=== PATIENT | female | born 1960 | race Caucasian/White ===

== ENCOUNTER → 2016-09-01 | Outpatient (CLI) | payer BC ==
[~2016-09-01] MED LIST: LOSA1TAB38 PO; MELA1TAB5 PO; MULT-506 PO; RANI150T3 PO
[2016-09-01 08:09] LABS: PATIENT HEIGHT 165.1 cm
[2016-09-01 09:37] LABS: URINE APPEARANCE CLOUDY (CLEAR); URINE BILIRUBIN NEG (NEG); URINE COLOR YELLOW; URINE NITRITE NEG (NEG); URINE PH 5.5 (4.5-7.5); UROBILINOGEN NEG (NEG)
[2016-09-01 09:48] LABS: MANUAL MICROSCOPIC REQUIRED? NO; REVIEW REQ? NO
[2016-09-01 09:53] LABS: BUN/CREATININE RATIO 14.1 (10-20); CALCIUM 8.7 mg/dl (8.5-10.1); CREATININE 1.5 mg/dl (0.60-1.20); POTASSIUM 4.1 mmol/L (3.5-5.1); URINE TOTAL PROTEIN 82.6 mg/dl (0-11.9)
[2016-09-01 09:54] LABS: PHOSPHORUS 3.1 mg/dl (2.5-4.9)
[2016-09-01 10:07] LABS: URINE TOTAL PROTEIN 32.5 mg/dl (0-11.9)
[2016-09-01 10:11] LABS: URINE PROTIEN/CREAT RATIO 1.1 (0-0.2)
[2016-09-01 10:20] LABS: CREATININE 1.5 mg/dl (0.6-1.2)
== END | disposition home or self-care (01) ==
LOC: C.LAB1850 08:01
PROVIDERS: ATTEND Internal Medicine Rheumatology
DX: R80.9 Proteinuria, unspecified (principal)

== ENCOUNTER → 2016-11-14 | Outpatient (CLI) | payer BC ==
--- NOTE | 2016-11-14 14:46 | DIAGNOSTIC IMAGING REPORT ---
CT OF THE CHEST WITHOUT IV CONTRAST CLINICAL HISTORY: Chronic cough COMPARISON STUDY: Chest x-ray dated 04/13/2016 CT DOSE: 195.73 mGy.cm TECHNIQUE: CT of the thorax was performed from the thoracic inlet to the lung bases. Images are reviewed in the axial, sagittal, and coronal planes. IV contrast was not administered for this examination. FINDINGS: Thyroid: Imaged portions of the thyroid gland are normal in appearance. Thoracic aorta: The thoracic aorta is normal in course and caliber, noting standard 3 vessel arch anatomy. Heart: The heart is normal in size and configuration, without pericardial effusion. Lungs and pleural spaces: There are no pleural effusions. There is no focal pulmonary consolidation. There is a 2.5 mm solid right apical point nodule as visualized in image #[id number]. There is a 2 mm solid there is a 4 mm left lower lobe pulmonary nodule as visualized in image #[id number]. Right lower lobe pulmonary nodule as visualized in image #[id number] Mediastinum: There is no mediastinal lymphadenopathy. Uzma: There is no evidence of pathologic hilar adenopathy given the limitations of a noncontrast study Axilla: Clear. Upper abdomen: Partially visualized upper abdominal viscera is within normal limits. Skeletal structures: There are no lytic or blastic osseous lesions. IMPRESSION: 1. No evidence of pathologic adenopathy 2. No evidence of focal pulmonary consolidation 3. Tiny bilateral solid pulmonary nodules, the largest of which measures 4 mm. 4. If the patient is a low risk patient, no further follow-up of these nodules is indicated. If the patient is at high risk, a 12 month follow-up is recommended. Please refer to below summary of Fleischner criteria recommendations for follow-up of incidental CT nodules (Katie Ramos, Guidelines for management of small pulmonary nodules detected on CT scans: A statement from the Fleischner Society, Radiology 237: [phone].) SOLID NODULES Solitary nodule size: <6 mm * low risk patients: no follow-up needed * high risk patients: optional CT at 12 months Solitary nodule size: 6-8 mm * low risk patients: follow-up at 6-12 months, then consider further follow-up at 18-24 months * high risk patients: initial follow-up CT at 6-12 months and then at 18-24 months if no change Solitary nodule size: >8 mm * either low or high risk patients - consider follow-up CT at 3 months, and/or CT-PET, and/or biopsy Multiple nodules size: <6 mm * low risk patients: no routine follow-up * high risk patients: optional CT at 12 months Multiple nodules size: 6-8 mm * low risk patients: follow-up at 3-6 months, then consider further follow-up at 18-24 months * high risk patients: follow-up at 3-6 months, then at 18-24 months if no change Multiple nodules size: >8 mm * low risk patients: follow-up at 3-6 months, then consider further follow-up at 18-24 months * high risk patients: follow-up at 3-6 months, then at 18-24 months if no change Note: newly detected indeterminate nodule in persons 35 years of age or older. * low risk patients: minimal or absent history of smoking and/or other known risk factors * high risk patients: history of smoking or of other known risk factors (e.g. first degree relative with lung cancer, or exposure to asbestos, radon, uranium) * if a nodule up to 8 mm is partly solid or is ground glass further follow-up is required after 24 months to exclude possible slow growing adenocarcinoma (JAZMINE) SUBSOLID NODULES Solitary pure ground-glass nodule * nodule size <6 mm - no CT follow-up required * nodule size >=6 mm - follow-up CT at 6-12 months, then every 2 years until 5 years Solitary part-solid nodule * nodule size <6 mm - no CT follow-up required * nodule size >=6 mm - follow-up CT at 3-6 months. If unchanged, and solid component remains <6 mm, then annual follow-up for 5 years Multiple subsolid nodules * nodule size <6 mm - follow-up CT at 3-6 months, consider further follow-up at 2 and 4 years if stable * nodule size >=6 mm - follow-up CT at 3-6 months, subsequent management based on the most suspicious nodule(s) Electronically signed by: Duarte Arreola M.D. 11/14/2016 2:44 PM Dictated Date/Time: 11/14/2016 2:37 PM
== END | disposition home or self-care (01) ==
LOC: C.CTS 14:13
PROVIDERS: ATTEND Internal Medicine Critical Care Medicine
DX: J31.0 Chronic rhinitis (principal); R05 Cough; R91.8 Other nonspecific abnormal finding of lung field

== ENCOUNTER → 2016-12-08 | Outpatient (CLI) | payer BC ==
--- NOTE | 2016-12-08 10:24 | DIAGNOSTIC IMAGING REPORT ---
CT SCAN OF THE PARANASAL SINUSES CLINICAL HISTORY: Chronic cough. Postnasal drip. COMPARISON STUDY: No priors. TECHNIQUE: High-resolution CT scan of the paranasal sinuses is performed. Images are reviewed in the axial, sagittal, and coronal planes. IV contrast was not administered for this examination. CT DOSE: 542.48 mGy.cm FINDINGS: Maxillary antra: There are 2 retention cysts in the right maxillary antrum which measure up to 1.6 cm. The left maxillary antrum is clear. Incomplete bony septations are present bilaterally. Anterior ethmoid sinuses: Clear. Posterior ethmoid sinuses: Clear. Sphenoid sinuses: Clear. Frontal sinuses: Clear. Ostiomeatal complexes: Patent bilaterally. Frontoethmoidal and sphenoethmoidal recesses: Patent bilaterally. Carotid arteries: The carotid arteries are covered and without septal attachments. Ethmoid roofs: The ethmoid roofs are symmetric. Nasal turbinates: Normal in appearance. Nasal septum: There is minimal rightward deviation of the bony nasal septum. Optic nerves: Covered. Orbits: The bony orbits are intact. Orbital contents are normal in appearance. Calvarium: The imaged calvarium is normal in appearance Mastoid air cells: There are trace mastoid effusions. Brain parenchyma: Partially visualized brain parenchyma is within normal limits. IMPRESSION: No significant paranasal sinus disease. See above. Electronically signed by: Solo Chew M.D. 12/08/2016 10:22 AM Dictated Date/Time: 12/08/2016 10:20 AM
== END | disposition home or self-care (01) ==
LOC: C.CTS 10:00
PROVIDERS: ATTEND Internal Medicine Critical Care Medicine
DX: R09.82 Postnasal drip (principal); R05 Cough

== ENCOUNTER → 2017-01-01 | Outpatient (CLI) | payer BC ==
[2017-01-03 20:52] LABS: QUANTIF TB AG-NIL <0.00 IU/ML; QUANTIFERON NIL 0.05 IU/ML
== END | disposition home or self-care (01) ==
LOC: C.LAB1850 08:17
PROVIDERS: ATTEND Internal Medicine Critical Care Medicine
DX: R05 Cough (principal); N18.9 Chronic kidney disease, unspecified

== ENCOUNTER → 2017-01-04 | Outpatient (CLI) | payer BC ==
--- NOTE | 2017-01-04 16:13 | MAMMOGRAPHY REPORT ---
BILATERAL DIGITAL SCREENING MAMMOGRAM TOMOSYNTHESIS WITH CAD: 01/04/2017 CLINICAL HISTORY: Routine screening. Patient has no complaints. TECHNIQUE: Breast tomosynthesis in addition to standard 2D mammography was performed. Current study was also evaluated with a Computer Aided Detection (CAD) system. COMPARISON: Comparison is made to exams dated: 11/27/2014 mammogram - [facility], 09/23/2013 mammogram, and 03/06/2012 mammogram. BREAST COMPOSITION: The tissue of both breasts is heterogeneously dense, which may obscure small mas ses. FINDINGS: No suspicious masses, calcifications, or areas of architectural distortion are noted in ei ther breast. There has been no significant interval change compared to prior exams. Scattered bilater al benign-appearing calcifications are not significantly changed. IMPRESSION: ACR BI-RADS CATEGORY 2: BENIGN There is no mammographic evidence of malignancy. A 1 year screening mammogram is recommended. The pa tient will receive written notification of the results. Approximately 10% of breast cancers are not detected with mammography. A negative mammographic report should not delay biopsy if a clinically suggestive mass is present. Jocy Mae M.D. /:01/04/2017 15:30:29 Nurse Gynecology: Philly HARDY)(Saray), [facility] letter sent: Normal 1/2 BI-RADS Code: ACR BI-RADS Category 2: Benign
== END | disposition home or self-care (01) ==
LOC: C.MAMM 12:20
PROVIDERS: ATTEND Family Medicine
DX: Z12.31 Encounter for screening mammogram for malignant neoplasm of breast (principal)

== ENCOUNTER → 2017-04-09 | Day surgery (SDC) | payer BC ==
[2017-04-04 08:07] VITALS: BMI 23.0
[~2017-04-09] VITALS: Ht 165.1 cm; Wt 64.5 kg
[~2017-04-09] MED LIST changes: +LIDOCAINE HCL 2% 2 ML VIAL (20MG/ML) ONE; +PROPOFOL IV EMULSION 10 MG/ML 20 ML VIAL IV ONE; +SODIUM CHLORIDE 0.9% 500ML 500 ML IV ONE
[2017-04-09 14:01] VITALS: Ht 165.1 cm; Wt 64.5 kg
--- NOTE | 2017-04-09 14:14 | Endo History and Physical ---
History & Physical Date of Service: Apr 09, 2017. Chief Complaint: CHRONIC COUGH Referring Physician: LAXMI WITT History of Present Illness chronic cough for EGD/Francis off meds x 7 days Past Surgical History Hx Cardiac Surgery: No Hx Internal Defibrillator: No Hx Pacemaker: No Hx Abdominal Surgery: Yes (HYSTERECTOMY) Hx of Implantable Prosthesis: No Hx Post-Op Nausea and Vomiting: No Hx Cancer Surgery: No Hx Thoracic Surgery: No Hx Orthopedic: Yes (RT ROBERT) Hx Urinary Tract Surgery: No Family History Colon CA Social History Smoking Status: Never Smoker Hx Substance Use: No Hx Alcohol Use: No Allergies Coded Allergies: NO KNOWN DRUG ALLERGIES (Verified Allergy, Unknown, ., 04/04/17) Current Medications Reported Home Medications Medications Dose Route/Sig Max Daily Dose Days Date Category Kp Melatonin (Melatonin) 3 Mg Tab 1 Tab PO HS 30 04/04/17 Reported Multivitamin (Multivitamins) Tab 1 Tab PO QAM 04/04/17 Reported Zantac (Ranitidine HCl) 150 Mg Tab 150 Mg PO BID 04/04/17 Reported Cozaar (Losartan Potassium) 100 Mg Tab 100 Mg PO QPM 04/04/17 Reported Vital Signs Weight (Kilograms): 64.55 Height (Feet): 5 Height (Inches): 5 Physical Exam AAOx3 Nls1s2 Lungs CTA Abd soft NT/ND + Bs - CCE Assessment and Plan EGD/Francis today
[2017-04-09 14:18] VITALS: TEMP 36.6
--- NOTE | 2017-04-09 15:06 | Anesthesiology Progress Note ---
Anesthesia Post Op Note Date & Time Apr 09, 2017 at 15:06 Vital Signs Pain Intensity: 0 Vital Signs Past 12 Hours Date Time Temp Pulse Resp B/P (MAP) Pulse Ox O2 Delivery O2 Flow Rate FiO2 04/09/17 14:18 36.6 85 20 153/81 (105) 97 Room Air Notes Mental Status: alert / awake / arousable, participated in evaluation Pt Amnestic to Procedure: Yes Nausea / Vomiting: adequately controlled Pain: adequately controlled Airway Patency, RR, SpO2: stable & adequate BP & HR: stable & adequate Hydration State: stable & adequate Anesthetic Complications: no major complications apparent
--- NOTE | 2017-04-09 15:15 | GI REPORT ---
Procedure Date: 04/09/2017 2:53 PM Procedure: Upper GI endoscopy Indications: Gastro-esophageal reflux disease, Chronic cough Medicines: Propofol per Anesthesia Complications: No immediate complications. Estimated blood loss: Minimal. Estimated Blood Loss: Estimated blood loss was minimal. Estimated blood loss was minimal. Procedure: Pre-Anesthesia Assessment: - Prior to the procedure, a History and Physical was performed, and patient medications and allergies were reviewed. The patient's tolerance of previous anesthesia was also reviewed. The risks and benefits of the procedure and the sedation options and risks were discussed with the patient. All questions were answered, and informed consent was obtained. Prior Anticoagulants: The patient has taken no previous anticoagulant or antiplatelet agents. ASA Grade Assessment: II - A patient with mild systemic disease. After reviewing the risks and benefits, the patient was deemed in satisfactory condition to undergo the procedure. After obtaining informed consent, the endoscope was passed under direct vision. Throughout the procedure, the patient's blood pressure, pulse, and oxygen saturations were monitored continuously. The Scope was introduced through the mouth, and advanced to the second part of duodenum. The upper GI endoscopy was accomplished without difficulty. The patient tolerated the procedure well. Findings: The examined esophagus was normal. The GONZALEZ capsule with delivery system was introduced through the mouth and advanced into the esophagus, such that the GONZALEZ pH capsule was positioned 31 cm from the incisors, which was 6 cm proximal to the EG junction. Suction was applied to the well of the GONZALEZ pH capsule to suck in the adjacent mucosa of the esophagus using the external vacuum pump set at a minimum vacuum pressure of 550 mmHg for 45 seconds. The GONZALEZ pH capsule was then deployed by depressing the plunger on top of the handle to advance the locking pin into the mucosa, thereby attaching the capsule to the esophagus. The plunger was then rotated a quarter turn clockwise to release the capsule from the delivery system. The delivery system was then withdrawn. Endoscopy was utilized for probe placement and diagnostic evaluation. Estimated blood loss: none. A small hiatus hernia was found. The proximal extent of the gastric folds (end of tubular esophagus) was 37 cm from the incisors. The hiatal narrowing was 40 cm from the incisors. The Z-line was 37 cm from the incisors. A widely patent, non-obstructing and mild Schatzki ring (acquired) was found at the gastroesophageal junction. Localized mild inflammation characterized by congestion (edema) and erythema was found in the cardia. Biopsies were taken with a cold forceps for histology. Estimated blood loss was minimal. Verification of patient identification for the specimen was done by the physician and statistical technician using the patient's name and medical record number. Retained gastric contents are not identified on this exam. The examined duodenum was normal. The exam of the stomach was otherwise normal. The cardia and gastric fundus were normal on retroflexion. Impression: - Normal esophagus. - Small hiatus hernia. - Widely patent, non-obstructing and mild Schatzki ring. - Acute gastritis. Biopsied. - Normal examined duodenum. Recommendation: - Discharge patient to home (ambulatory). - Advance diet as tolerated. - Do not use any liquid antacids, TUMS or acid blocking medications for the next 48 hour during the study until the box is returned. MD Sae Arroyo MD 04/09/2017 3:15:15 PM This report has been signed electronically. Note Initiated On: 04/09/2017 2:53 PM I attest to the content of the Intraoperative Record and orders documented therein, exceptions below
--- NOTE | 2017-04-09 15:22 | Discharge Instructions ---
Endoscopy Patient Instructions Date / Procedure(s) Performed Apr 09, 2017. EGD Allergy Information Coded Allergies: NO KNOWN DRUG ALLERGIES (Verified Allergy, Unknown, ., 04/04/17) Discharge Date / Findings Apr 09, 2017. EGD with HH, non osbstructing Schatzki and mild inflammation at cardia GONZALEZ placed Medication Instructions Stopped Medication(s): ZANTAC LAST DOSE 04/02/17 Restart Stopped Medication(s): Reported Home Medications Medications Dose Route/Sig Max Daily Dose Days Date Category Kp Melatonin (Melatonin) 3 Mg Tab 1 Tab PO HS 30 04/04/17 Reported Multivitamin (Multivitamins) Tab 1 Tab PO QAM 04/04/17 Reported Zantac (Ranitidine HCl) 150 Mg Tab 150 Mg PO BID 04/04/17 Reported Cozaar (Losartan Potassium) 100 Mg Tab 100 Mg PO QPM 04/04/17 Reported Reported Home Medications Medications Dose Route/Sig Max Daily Dose Days Date Category Kp Melatonin (Melatonin) 3 Mg Tab 1 Tab PO HS 30 04/04/17 Reported Multivitamin (Multivitamins) Tab 1 Tab PO QAM 04/04/17 Reported Zantac (Ranitidine HCl) 150 Mg Tab 150 Mg PO BID 04/04/17 Reported Cozaar (Losartan Potassium) 100 Mg Tab 100 Mg PO QPM 04/04/17 Reported Provider Instructions Activity Restrictions - No exercising or heavy lifting for 24 hours. - Do not drink alcohol the day of the procedure. - Do not drive a car or operate machinery until the day after the procedure. - Do not make any important decisions or sign important papers in 24 hours after the procedure. Following Day: - Return to full activity which may include returning to work/school. Diet Start your diet with liquids and light foods (jello, soup, juice, toast). Then eat your usual diet if not nauseated. Treatment For Common After Affects For mild abdominal pain, bloating, or excessive gas: - Rest - Eat lightly - Lie on right side Follow-Up Information Follow-up with LAXMI WITT as scheduled Anesthesia Information What You Should Know You have had a procedure that required some medicine to reduce anxiety and discomfort. This treatment is called moderate sedation. After receiving the treatment, you may be sleepy, but you will be able to breathe on your own. The effects of the treatment may last for several hours. Follow these instructions along with Activity/Diet recommendations noted above: * Do NOT do anything where dizziness or clumsiness would be dangerous. * Rest quietly at home today, then you can be up and about tomorrow. * Have a responsible person stay with you the rest of today. * You may have had an I.V. today. If so, you may take the dressing off later today. Recommendations Call your doctor if: * Trouble breathing * Continuous vomiting for more than 24 hours * Temperature above 101 degrees * Severe abdominal pain or bloating * Pain not relieved by pain medicine ordered * There is increased drainage or redness from any incision * A large amount of rectal bleeding greater than 2-3 tablespoons. (If you had a polyp/s removed or have hemorrhoids, a small amount of blood - from the rectum is to be expected.) * You have any unanswered questions or concerns. IN THE EVENT OF A SERIOUS EMERGENCY, GO TO THE NEAREST EMERGENCY ROOM Your discharge instructions were prepared by provider Sae Edward. Patient Instructions Signature Page Monica Marie Patient (or Guardian) Signature/Date: I have read and understand the instructions given to me by my caregivers. Caregiver/RN/Doctor Signature/Date: The above-named patient and/or guardian has received patient instructions on this date. + Original Patient Signature Page (only) stays with chart. Please make copy for patient.
[2017-04-09 15:41] VITALS: BP 131/75; PULSE 71; O2SAT 99
--- NOTE | 2017-04-15 21:37 | GASTROINTESTINAL CONSULTATION ---
DATE OF CONSULTATION: 04/09/2017 ENDOSCOPY PROCEDURE NOTE PROCEDURE PERFORMED: A 48-hour esophageal pH Francis system off acid-suppressing medication. ENDOSCOPIST: Sae Edward MD. REFERRING PROVIDER: Madan Gamble MD. INDICATION: Chronic cough. HISTORY OF PRESENT ILLNESS: The patient reports a history of chronic cough on acid suppressing medications. This Francis study was performed off of acid suppression by way of PPIs, H2 blockers and liquid antacids during this study. PPI were held 7 days prior to the study. The Francis capsule was placed endoscopically on 04/09/2017. The fraction time of the esophageal pH was less than 4.00. During the entire 48-hours period, it was 1.0% (normal less than 6%). With a total period, the fraction time in the upright position was 1.4% and in the supine position 0.0%. A total of 18 symptoms were identified by the patient over the 2-day period. One of the 18 correlated with acid reflux and 17 symptoms did not correlate with acid reflux in the esophagus For these, the symptom index reflux is 5.6% which identifies there is no correlation with the patient's symptoms and acid reflux into the esophagus. On the first day of the study, the total percent time spent in reflux was 0.4% (normal less than 6%). For the first day, the time spent in reflux in the upright position was 0.6 and in the supine position 0.0% respectively. On the first day, the patient described 5 cough events, for which none of the cough symptoms correlated with an acidic esophageal pH. On the second day (second 24-hour period), the total fraction time for that 24-hour period spend in reflux was 2.1%. In the upright position, the fraction time was 2.2% and in the supine position 0.0%. On the second day, the patient had 13 symptoms of cough, for which only one correlated is an acidic esophageal pH and 12 occurred in the absence of acid reflux. This defines the symptom as 7.7% which demonstrates no correlation with the patient's symptom of cough and acid reflux. Review of the patient's symptom log described that coughing attacks occurred at approximately 11:30 a.m. on day#1 of the study as well as a period of coughing at 4:10 p.m., 04:18 p.m. and 07:40 p.m. On the second day of the study, the patient had coughing events occurring at 6:45 and 10:00 a.m. IMPRESSION: 1. Normal amount of acid exposure in the esophagus off of acid suppressing medications. Only one of the 18 events of coughing correlated with acid reflux. The remainder of symptoms do not correlate with acid reflux. The study cannot discern if the symptoms of coughing are actually occurring in the presence of non-acid reflux and 24-hour pH impedance on b.i.d. PPI therapy may help determine if the patient's coughing events correlate with a non-acid reflux. [facility]
== END | disposition home or self-care (01) ==
LOC: C.GI 13:45
PROVIDERS: ATTEND Internal Medicine Gastroenterology
DX: R05 Cough (principal); K20.9 Esophagitis, unspecified; K21.9 Gastro-esophageal reflux disease without esophagitis; K22.2 Esophageal obstruction; K29.00 Acute gastritis without bleeding; M19.90 Unspecified osteoarthritis, unspecified site; N18.2 Chronic kidney disease, stage 2 (mild); Z90.710 Acquired absence of both cervix and uterus; Z80.0 Family history of malignant neoplasm of digestive organs; K44.9 Diaphragmatic hernia without obstruction or gangrene

== ENCOUNTER → 2017-05-21 | Outpatient (CLI) | payer BC ==
[~2017-05-21] MED LIST changes: -LIDOCAINE HCL 2% 2 ML VIAL (20MG/ML) ONE; -PROPOFOL IV EMULSION 10 MG/ML 20 ML VIAL IV ONE; -SODIUM CHLORIDE 0.9% 500ML 500 ML IV ONE
[2017-05-21 10:06] LABS: HEMATOCRIT 35.1 % (37-47); MEAN CELL VOLUME 89.1 fL (80-100); MEAN CORPUSCULAR HEMOGLOBIN 29.2 pg (25-34); MEAN CORPUSCULAR HGB CONC 32.8 g/dl (32-36); MEAN PLATELET VOLUME 9.6 fL (7.4-10.4); PLATELET COUNT 207 K/uL (130-400); RED BLOOD COUNT 3.94 M/uL (4.2-5.4); WHITE BLOOD COUNT 4.75 K/uL (4.8-10.8)
[2017-05-21 10:23] LABS: URINE APPEARANCE CLEAR (CLEAR); URINE BILIRUBIN NEG (NEG); URINE COLOR YELLOW; URINE NITRITE NEG (NEG); URINE SPECIFIC GRAVITY 1.013 (1.000-1.030); UROBILINOGEN NEG (NEG)
[2017-05-21 10:24] LABS: MANUAL MICROSCOPIC REQUIRED? NO; REVIEW REQ? NO
[2017-05-21 10:38] LABS: BLOOD UREA NITROGEN 22 mg/dl (7-18); BUN/CREATININE RATIO 17.6 (10-20); CALCIUM 8.8 mg/dl (8.5-10.1); CARBON DIOXIDE 28 mmol/L (21-32); CHLORIDE 105 mmol/L (98-107); CREATININE 1.26 mg/dl (0.60-1.20); GLUCOSE 70 mg/dl (70-99); PHOSPHORUS 3.1 mg/dl (2.5-4.9); POTASSIUM 3.9 mmol/L (3.5-5.1); SODIUM 140 mmol/L (136-145)
[2017-05-21 10:44] LABS: CREATININE, URINE 48.1 mg/dl; URINE PROTIEN/CREAT RATIO 0.3 (0-0.2); URINE TOTAL PROTEIN 14.3 mg/dl (0-11.9)
== END | disposition home or self-care (01) ==
LOC: C.LAB1850 07:35
PROVIDERS: ATTEND Internal Medicine Nephrology
DX: Z87.448 Personal history of other diseases of urinary system (principal)

== ENCOUNTER → 2017-06-04 | Outpatient (CLI) | payer BC ==
[2017-06-04 11:32] LABS: FERRITIN 35.8 ng/ml (8.0-388.0)
== END | disposition home or self-care (01) ==
LOC: C.LAB1850 09:50
PROVIDERS: ATTEND Internal Medicine Nephrology
DX: E55.9 Vitamin D deficiency, unspecified (principal); D64.9 Anemia, unspecified

== ENCOUNTER → 2017-11-05 | Outpatient (CLI) | payer BC, OTHER | END | disposition home or self-care (01) | LOC: C.RDSM 19:42 | PROVIDERS: ATTEND Physical Medicine & Rehabilitation Sports Medicine | DX: M25.551 Pain in right hip (principal) ==